=== PATIENT | male | born 1980 | race Caucasian/White ===

== ENCOUNTER 2025-04-03 09:15 | Emergency (ER) | payer MEDICAID ==
[~2025-04-03] VITALS: Ht 172.7 cm; Wt 68.0 kg
[2025-04-03 09:20] VITALS: O2SAT 100
[2025-04-03] MEDS: MORPHINE SULFATE 4 MG/ML INJ (FOR IV/IM USE) IV STA (09:44)
[2025-04-03] MEDS: KETOROLAC 30MG/ML VIAL IV STA (09:44)
[2025-04-03] MEDS: ONDANSETRON HCL 4MG/2ML INJ IV STA (09:44)
[2025-04-03] MEDS: SODIUM CHLORIDE 0.9% 1,000 ML IV ONE (09:45)
[2025-04-03 10:40] LABS: BASOPHILS % 0.2 % (0.0-2.0); HEMOGLOBIN. 13.9 g/dL (14.0-18.0); MEAN CORPUSCULAR HEMOGLOBIN 30.8 pg (28.0-32.0); MEAN CORPUSCULAR HGB CONC 33.1 g/dL (31.0-37.0); MEAN PLATELET VOLUME 9.3 fl (7.4-10.4); MONOCYTES % 6.1 % (2.0-8.0); NEUTROPHILS % 81.7 % (40.0-76.0); PLATELET 200 x1000/uL (130-400); RED BLOOD CELL COUNT 4.51 mill/uL (4.7-6.1); WHITE BLOOD COUNT 10.1 x1000/uL (4.5-11.0)
[2025-04-03 10:50] LABS: INR 0.9
[2025-04-03 10:59] LABS: CHLORIDE 105 mEq/L (98-107); POTASSIUM 3.6 mEq/L (3.5-5.1); SODIUM 139 mEq/L (136-145)
[2025-04-03 11:01] LABS: CALCIUM 8.9 mg/dL (8.7-10.4); CARBON DIOXIDE 26 mEq/L (21-32)
[2025-04-03 11:06] LABS: CREATININE 0.7 mg/dL (0.6-1.3); GLUCOSE 95 mg/dL (70-105); UREA NITROGEN BLOOD 12 mg/dL (9-23)
[2025-04-03 11:08] LABS: ALANINE AMINOTRANSFERASE 68 IU/L (10-49); ALBUMIN 3.9 g/dL (3.2-4.8); ASPARTATE AMINOTRANSFERASE 41 IU/L (<34); BILIRUBIN DIRECT < 0.1 mg/dL (<=3.0); BILIRUBIN TOTAL 0.2 mg/dL (0.1-1.0)
[2025-04-03 11:09] LABS: PROTEIN TOTAL 6.7 g/dL (6.0-8.3)
[2025-04-03] MEDS ORDERED: IBUP-2029 MT (11:27)
[2025-04-03] MEDS ORDERED: HYDR-4001 MT (11:28)
[2025-04-03] MEDS ORDERED: ONDA-239 PO (11:28)
[2025-04-03 11:42] VITALS: BP 120/72; PULSE 12; RESP 12; TEMP 35.6; O2SAT 100
== END 2025-04-03 12:15 | disposition home or self-care (01) ==
LOC: ER 09:23
DX: K80.70 Calculus of gallbladder and bile duct without cholecystitis without obstruction (principal); Z98.890 Other specified postprocedural states
CPT/HCPCS: 80076; 80048; 83690; 85025; 85610; 36415; 71045; 76705; 93005; 96374; 96375; 99285; J1885; J2405; J2270; J7030; Z7610